=== PATIENT | female | born 1950 | race Caucasian/White ===

== ENCOUNTER → 2016-07-26 | Outpatient (CLI) | payer BC, MEDICARE ==
[~2016-07-26] MED LIST: ASPI-558 PO; ATOR10TA20 PO; CA C1TAB81 PO; CALC600T12 PO; DOCU-129 PO; ESTR42.58 VG; FISH1CAP29 PO; FLUT16SP12 NS; HYDR25SU RC; INUL197. PO; LEVO25TA7 PO; MAGN250T27 PO; SOTA80TA42 PO; TRIA1TAB92 PO
== END ==
LOC: WC.BC 12:53
DX: Z12.31 Encounter for screening mammogram for malignant neoplasm of breast (principal)
CPT/HCPCS: 77063; G0202